=== PATIENT | female | born 1970 | race Caucasian/White ===

== ENCOUNTER 2016-11-10 14:52 | Emergency (ER) | payer MEDICAID, OTHER ==
[~2016-11-10] VITALS: Ht 162.6 cm; Wt 80.0 kg
[2016-11-10 14:54] VITALS: Ht 162.6 cm; Wt 80.0 kg
[2016-11-10 15:54] LABS: ABNORMAL IP MESSAGE 1; BASOPHIL # 0.1 10^3/ul (0.0-0.1); BASOPHILS % 0.9 % (0.0-2.0); EOSINOPHILS # 0.2 10^3/ul (0.0-0.5); EOSINOPHILS % 2.1 % (0.0-7.0); HEMATOCRIT 27.2 % (37.0-47.0); HEMOGLOBIN 8.2 g/dl (12.0-16.0); LYMPHOCYTES # 2.2 10^3/ul (0.8-2.9); LYMPHOCYTES % 27.5 % (15.0-51.0); MEAN CORPUSCULAR HEMOGLOBIN 22.4 pg (29.0-33.0); MEAN CORPUSCULAR HGB CONC 30.1 g/dl (32.0-37.0); MEAN CORPUSCULAR VOLUME 74.3 fl (82.0-101.0); MEAN PLATELET VOLUME 11.5 fl (7.4-10.4); MONOCYTE # 0.5 10^3/ul (0.3-0.9); MONOCYTES % 6.2 % (0.0-11.0); NEUTROPHILS % 62.9 % (39.0-77.0); PLATELET COUNT 222 10^3/UL (140-415); RED BLOOD COUNT 3.66 10^6/ul (4.20-5.40); RED CELL DISTRIBUTION WIDTH 21.2 % (11.5-14.5)
[2016-11-10 15:57] LABS: ADD UMIC YES; UR ASCORBIC ACID 40 mg/dL (NEGATIVE); UR BILIRUBIN (Dip) NEGATIVE (NEGATIVE); UR BLOOD (Dip) 2+ mg/dL (NEGATIVE); UR CLARITY CLEAR (CLEAR); UR COLOR AMBER (YELLOW); UR GLUCOSE (Dip) NEGATIVE (NEGATIVE); UR KETONES (Dip) NEGATIVE (NEGATIVE); UR LEUKOCYTE ESTERASE (Dip) NEGATIVE Leu/ul (NEGATIVE); UR NITRITE (Dip) NEGATIVE (NEGATIVE); UR RBC 95 /HPF (0-5); UR SPECIFIC GRAVITY (Dip) 1.019 (1.003-1.030); UR SQUAMOUS EPITHELIAL CELL FEW /HPF (FEW); UR TOTAL PROTEIN (Dip) NEGATIVE (NEGATIVE); UR UROBILINOGEN (Dip) NEGATIVE (NEGATIVE)
[2016-11-10 15:58] LABS: POSITIVE DIFF @See below
[2016-11-10 16:00] LABS: INR 0.95; PROTIME 12.7 Sec (12.2-14.2)
[2016-11-10 16:01] LABS: PARTIAL THROMBOPLASTIN TIME 24.3 Sec (25.0-35.0)
[2016-11-10 16:03] LABS: CALCIUM 9.1 mg/dl (8.4-10.2); CREATININE 0.62 mg/dl (0.44-1.00); POTASSIUM 3.9 mmol/L (3.5-5.1)
--- NOTE | 2016-11-10 16:29 | RADRPT ---
PROCEDURE: ULTRASOUND EVALUATION OF THE FEMALE PELVIS: CLINICAL INDICATION: 46 years of age, female, 1-month history of vaginal bleeding . COMPARISON: None available. TECHNIQUE: Real-time sonographic images of the pelvis were obtained transabdominally and transvagina lly utilizing jaimes scale, color, and Doppler imaging. FINDINGS: LMP: October 13, 2016 Uterus: Appearance: There are multiple intramural uterine fibroids and there is a 1 cm submucosal fibroid in the posterior uterine body. Largest intramural fibroid measures 1.8 x 1.9 x 2 cm Position: Anteverted Size: 9.9 x 5.7 x 6.3 cm. (Volume 186 mL) Endometrial stripe: 0.9 cm. Trilaminar. Right ovary and adnexa: Not visualized. Negative for evidence of a right adnexal mass. Left ovary and adnexa: Size: 5 x 3 x 3.7 cm. (Volume 28.5 mL) Appearance: Multiple follicles measuring up to 3.3 cm. Arterial flow present. Free fluid: Trace free pelvic fluid IMPRESSION: Multiple uterine fibroids including a 1 cm submucosal fibroid. This is a potential cause for vagina l bleeding. Normal endometrial thickness in a premenopausal patient. Mildly enlarged left ovary due to multiple follicles. Right ovary is not visualized. Negative for e vidence of a right adnexal mass. RPTAT: HCTS Physician Gui Date Time Electronically viewed and signed by Physician Gui on 11/10/2016 16:28 CS/
--- NOTE | 2016-11-10 17:17 | ERD ---
ER Documentation Chief Complaint Date/Time DATE: 11/10/16 TIME: 17:14 Chief Complaint vag bleed x 1 month HPI 46-year-old female history of intermittent vaginal bleeding on and off for 6 months presents with worsening bleeding over the last day. She states that over the past 4 weeks she has bleeding about every day, approximately 3 pads a day. She has no pelvic pain, dizziness, chest pain or shortness of breath. She is seeing a maintenance plumber at [facility] who prescribed her Provera 10 mg to be taken daily. She follow-up at an outside clinic yesterday that told her to take 20 mg daily. She takes iron daily as well. ROS All systems reviewed and are negative except as per history of present illness. Physical Exam Vitals Vital Signs Date Time Temp Pulse Resp B/P Pulse Ox O2 Delivery O2 Flow Rate FiO2 11/10/16 14:54 98.9 66 18 134/63 100 Physical Exam General: Well-developed, well-nourished. The patient appears in no acute distress. HEENT: Head is normocephalic, atraumatic. No scleral icterus. Neck: Supple. Nontender. Lungs: Clear to auscultation. Normal air movement. Heart: Regular rate and rhythm. S1 and S2 are normal. No murmurs, gallops, or rubs. Abdomen: Soft, nontender, nondistended. Bowel sounds are normoactive. : Cervix appears normal, there is a slow ooze of bleeding, no hemorrhaging, no masses, no CMT tenderness. Extremities: No clubbing or cyanosis. Normal pulses. Moving extremities x 4. No weakness. Neurologic: Alert and oriented 3. No focal deficits. Skin: Normal turgor. No rash or lesions. Result Diagram: 11/10/16 1540 11/10/16 1540 Results 24 hrs Laboratory Tests Test 11/10/16 15:30 11/10/16 15:40 Urine Color FOSTER Urine Clarity CLEAR Urine pH 8.0 Urine Specific [place] 1.019 Urine Ketones NEGATIVEmg/dL Urine Nitrite NEGATIVEmg/dL Urine Bilirubin NEGATIVEmg/dL Urine Urobilinogen NEGATIVEmg/dL Urine Leukocyte Esterase NEGATIVELeu/ul Urine Microscopic RBC 95/HPF Urine Microscopic WBC 2/HPF Urine Squamous Epithelial Cells FEW/HPF Urine Hemoglobin 2+mg/dL Urine Glucose NEGATIVEmg/dL Urine Total Protein NEGATIVEmg/dl White Blood Count 8.010^3/ul Red Blood Count 3.6610^6/ul Hemoglobin 8.2g/dl Hematocrit 27.2% Mean Corpuscular Volume 74.3fl Mean Corpuscular Hemoglobin 22.4pg Mean Corpuscular Hemoglobin Concent 30.1g/dl Red Cell Distribution Width 21.2% Platelet Count 59414^3/UL Mean Platelet Volume 11.5fl Neutrophils % 62.9% Lymphocytes % 27.5% Monocytes % 6.2% Eosinophils % 2.1% Basophils % 0.9% Nucleated Red Blood Cells % 0.0/100WBC Neutrophils # (Manual) 5.010^3/ul Lymphocytes # 2.210^3/ul Monocytes # 0.510^3/ul Eosinophils # 0.210^3/ul Basophils # 0.110^3/ul Nucleated Red Blood Cells # 0.010^3/ul Prothrombin Time 12.7Sec Prothrombin Time Ratio 1.0 INR International Normalized Ratio 0.95 Activated Partial Thromboplast Time 24.3Sec Sodium Level 138mmol/L Potassium Level 3.9mmol/L Chloride Level 103mmol/L Carbon Dioxide Level 23mmol/L Anion Gap 16 Blood Urea Nitrogen 7mg/dl Creatinine 0.62mg/dl Glucose Level 94mg/dl Calcium Level 9.1mg/dl DIAGNOSTIC IMAGING REPORT Patient: JUAN WALDEN : 1970 Age: 46 Sex: F MR #: [id number] DOS: 11/10/16 0000 Ordering MD: SHALINI VILLA PA-C Location: [facility] Room/Bed: PROCEDURE: ULTRASOUND EVALUATION OF THE FEMALE PELVIS: CLINICAL INDICATION: 46 years of age, female, 1-month history of vaginal bleeding . COMPARISON: None available. TECHNIQUE: Real-time sonographic images of the pelvis were obtained transabdominally and transvaginally utilizing jaimes scale, color, and Doppler imaging. FINDINGS: LMP: October 13, 2016 Uterus: Appearance: There are multiple intramural uterine fibroids and there is a 1 cm submucosal fibroid in the posterior uterine body. Largest intramural fibroid measures 1.8 x 1.9 x 2 cm Position: Anteverted Size: 9.9 x 5.7 x 6.3 cm. (Volume 186 mL) Endometrial stripe: 0.9 cm. Trilaminar. Right ovary and adnexa: Not visualized. Negative for evidence of a right adnexal mass. Left ovary and adnexa: Size: 5 x 3 x 3.7 cm. (Volume 28.5 mL) Appearance: Multiple follicles measuring up to 3.3 cm. Arterial flow present. Free fluid: Trace free pelvic fluid IMPRESSION: Multiple uterine fibroids including a 1 cm submucosal fibroid. This is a potential cause for vaginal bleeding. Normal endometrial thickness in a premenopausal patient. Mildly enlarged left ovary due to multiple follicles. Right ovary is not visualized. Negative for evidence of a right adnexal mass. RPTAT: HCTS Physician Gui Date Time Electronically viewed and signed by Yunior Zuñiga Physician on 11/10/2016 16: 28 Urine is negative. Procedures/MDM 46-year-old female presents with uterine fibroids, likely submucosal causing bleeding, and anemia. Patient's hemoglobin is 8.2 today, stable and she is asymptomatic and has normal vital signs. This was discussed at length with the patient that she needs to follow-up with a maintenance plumber at [facility], with all the results that have been printed out today for her that she may follow-up, and seek possible surgical evaluation. She was advised to continue taking the iron. Patient does not show any evidence of ectopic , . The case was reviewed and discussed with Dr. Landeros who agrees with the plan of care including labs, treatment, and advanced imaging as appropriate. Departure Diagnosis: Primary Impression: Fibroid, uterine Uterine leiomyoma location: submucous Qualified Code: D25.0 - Submucous leiomyoma of uterus Additional Impression: Anemia Condition: Good Patient Instructions: Uterine Fibroids Additional Instructions: Gynecologia Specialista:Usted tiene bruna condicin mdica que requiere que nadia a un especialista dentro de los prximos 1 SEMANA.POR FAVOR,CON THOMAS SEGUIMIENTO DE PRIMARIA PHSICIAN refferal. SI USTED NO TIENE UN MDICO GENERAL Y / O USTED NO PUEDE PAGAR nuria a un mdico,los siguientes briggs RECURSOS sido suministrado a usted. ES THOMAS RESPONSABILIDAD PARA SER VISTOS POR EL ESPECIALISTA: SHALINI VILLA PA-C Nov 10, 2016 17:14
== END 2016-11-10 17:26 | disposition home or self-care (01) ==
LOC: FTE 14:52
DX: D25.0 Submucous leiomyoma of uterus (principal); D64.9 Anemia, unspecified; R10.2 Pelvic and perineal pain
CPT/HCPCS: 36415; 76830; 76856; 80048; 81001; 85025; 85610; 85730; 86850; 86900; 86901; Z7502